=== PATIENT | female | born 1955 | race Caucasian/White ===

== ENCOUNTER 2018-01-05 15:38 | Inpatient (IN) ==
[2018-01-05] MEDS ORDERED: Acetaminophen 325 MG Tablet PO PRN (23:34)
[2018-01-05] MEDS ORDERED: Bisacodyl 10 MG Supp RECTAL PRN (23:34)
[2018-01-05] MEDS ORDERED: Zolpidem Tartrate 5 MG Tablet PO PRN (23:34)
[2018-01-06] MEDS: Ciprofloxacin 400 MG/200 ML 400 MG/200 ML PIGGYBACK IV.SIG SCH ×2 (01:02→12:19)
[2018-01-06] MEDS: Heparin - SQ 10,000 UNITS/ML Vial SQ SCH ×2 (01:03→08:47)
[2018-01-06 07:37] LABS: Baso % (Auto) 0.3 % (0.0-2.0); Eos # (Auto) 0.1 th/mm3 (0.0-0.4); Eos % (Auto) 0.9 % (0.0-4.0); Hemoglobin 10.8 gm/dL (11.6-15.3); Lymph # (Auto) 0.7 th/mm3 (1.0-4.8); Lymph % (Auto) 6.1 % (9.0-44.0); Mean Corpuscular HGB Conc 34.8 % (32.0-36.0); Mean Corpuscular Hemoglobin 34.8 pg (27.0-34.0); Mean Corpuscular Volume 99.8 fL (80.0-100.0); Mean Platelet Volume 9.5 fL (7.0-11.0); Mono # (Auto) 1.1 th/mm3 (0.0-0.9); Mono % (Auto) 9.6 % (0.0-8.0); Neut # (Auto) 9.5 th/mm3 (1.8-7.7); Neut % (Auto) 83.1 % (16.0-70.0); Platelet Count 137 th/mm3 (150-450); Red Cell Distribution Width 14.4 % (11.6-17.2); White Blood Count 11.4 th/mm3 (4.0-11.0)
[2018-01-06 07:39] LABS: Potassium 3.7 meq/L (3.5-5.1)
[2018-01-06 07:50] LABS: Calcium 7.1 mg/dL (8.5-10.1); Carbon Dioxide 20.3 meq/L (21.0-32.0)
[2018-01-06 08:59] LABS: Calcium-Albumin Corrected 7.8 mg/dL (8.5-10.1); Total Protein 5.7 g/dL (6.4-8.2)
--- NOTE | 2018-01-06 11:17 | P.HP ---
History of Present Illness Primary Care Physician: Gasper Del Cid History of Present Illness: 62-year-old white female being admitted for sepsis Patient was in her usual state of health until about 3 days ago when she began experiencing fevers, chills, fatigue, diaphoresis, dysuria, urinary urgency, and left-sided flank pain. She tried taking Tylenol and Motrin, she had a max fever of up to 103 at home. About 1-2 weeks prior to the onset of the symptoms she had just completed a course of Keflex for a UTI and a URI for which she was diagnosed at the emergency department about 20 days ago. The emergency department she was noted to have a white count around 17,000 with substantial microscopic pyuria noted. Patient had a chest x-ray done which had been reviewed which was negative for any acute infection. Patient was started on vancomycin and Zosyn and admitted. Inpatient Certification: I certify that the inpatient services were ordered in accordance with Medicare regulations governing the order. This includes certification that hospital inpatient services are reasonable and necessary and in the case of services not specified as inpatient-only under 42 CFR 419.22(n), that they are appropriately provided as inpatient services in accordance to with the 2-midnight benchmark under 43 CFR 412.3(e) Estimated Total Length of Stay (Days): 3 Plans for Post Hospital Care: Not yet determined Review of Systems All other systems reviewed negative except as stated in HPI PMFSH - History History Provided By: Patient - Medical History Medical History: Medical History (Last Reviewed 01/06/18 @ 11:14 by Kevin Marrufo MD) Crohn disease - Surgical History Surgical History: Surgical History (Last Reviewed 01/06/18 @ 11:14 by Kevin Marrufo MD) History of History of shoulder surgery Hx of removal of cyst Hx of tonsillectomy - Family History Family History: Family History (Last Updated 01/06/18 @ 11:14 by Kevin Marrufo MD) Other Diverticulitis Stroke - Social History I have reviewed the patient's Social History: Yes - Tobacco History Second Hand Smoke Exposure: Yes Tobacco Use In Past 30 Days: Yes Smoking Status: Smoker, status unknown Tobacco Type: Cigarettes - Alcohol History How Often Do You Have a Drink Containing Alcohol: Never - Substance Use History Substance History: No History of Abuse - Immunization History Tetanus Immunization: <5 Years Tetanus Immunization Year if Known: 2017 Hx Influenza Vaccine This Season: No Medications and Allergies Active Medications: Active Medications Acetaminophen (Tylenol) 650 mg PO Q4H PRN PRN Reason: Temp > 100.4 Bisacodyl (Dulcolax Supp) 10 mg RECTAL DAILY PRN PRN Reason: SEVERE CONSITIPATION Heparin Sodium (Porcine) (Heparin Inj) 5,000 units SQ Q8H [facility] Last Admin: 01/06/18 08:47 Dose: Not Given Lactated Ringer's (Lr 1000 Ml Inj) 1,000 mls @ 125 mls/hr IV.CONT .Q8H [facility] Last Admin: 01/06/18 08:48 Dose: 125 mls/hr Ciprofloxacin/Dextrose (Cipro 400 Mg/200 Ml Inj) 400 mg in 200 mls @ 200 mls/ hr IV.SIG Q12H [facility] Last Infusion: 01/06/18 02:25 Dose: Infused Prochlorperazine Edisylate (Compazine Inj) 5 mg IV.PUSH Q4H PRN PRN Reason: NAUSEA OR VOMITING Sennosides (Senokot) 17.2 mg PO Q12H PRN PRN Reason: Moderate Constipation Zolpidem Tartrate (Ambien) 5 mg PO HS PRN PRN Reason: INSOMNIA Allergies Allergy/AdvReac Type Severity Reaction Status Date / Time latex Allergy Mild Hives Verified 01/05/18 16:08 Home Medications Medication Instructions Recorded Confirmed Type folic acid 1 mg PO DAILY 01/05/18 01/05/18 History sulfasalazine 0.5 g PO BID 01/05/18 01/05/18 History Exam Vital signs: Vital Signs 01/05/18 23:00 01/06/18 04:00 01/06/18 08:00 Temperature 99.5 F 98.4 F 99.4 F Pulse Rate 67 67 76 Respiratory Rate 16 16 18 Blood Pressure 112/58 L 115/72 117/57 L Pulse Oximetry 97 97 95 Intake & Output 01/05/18 01/06/18 01/06/18 18:59 06:59 18:59 Intake Total 200 / 200 1000 / 1000 Balance 200 / 200 1000 / 1000 Weight 50.8 kg Intake: IV 200 / 200 1000 / 1000 LR 1000 mL Inj 1,000 ML @ 125 1000 / 1000 mls/hr IV.CONT .Q8H [facility] Rx#: [id number] Cipro 400 MG/200 ML Inj 400 mg 200 / 200 In 200 ml @ 200 mls/hr IV.SIG Q12H [facility] Rx#:[id number] Other: Date of Last Bowel Movement 01/05/18 01/05/18 Weight On Admission 76.4 kg Narrative: VS: afebrile GENERAL: Well-nourished middle-aged female, reclining in bed SKIN: Warm and dry. EYES: No scleral icterus. No injection or drainage. ENT: No nasal bleeding or discharge. Mucous membranes pink and moist. CARDIOVASCULAR: Regular rate and rhythm. no murmurs RESPIRATORY: No accessory muscle use. Clear to auscultation. Breath sounds equal bilaterally. GASTROINTESTINAL: Abdomen soft, nondistended, vague diffuse abdominal tenderness to palpation : No suprapubic tenderness, no right-sided CVA tenderness to percussion, + left-sided CVA tenderness to percussion Extremities: No clubbing, cyanosis, or edema. No obvious deformities. MUSCULOSKELETAL: adequate muscle bulk and tone for age and habitus NEUROLOGICAL: Awake and alert. No obvious cranial nerve deficits. No facial droop nor slurred speech noted. PSYCHIATRIC: Appropriate mood and affect; insight and judgment normal. Results - Labs CBC & Chem 7: 01/06/18 06:15 01/06/18 06:15 Labs: Laboratory Results - last 24 hr 01/06/18 01/06/18 06:15 06:15 CBC w Diff Auto diff final WBC 11.4 H RBC 3.10 L Hgb 10.8 L D Hct 31.0 L MCV 99.8 MCH 34.8 H MCHC 34.8 RDW 14.4 Plt Count 137 L D MPV 9.5 Neut % (Auto) 83.1 H Lymph % (Auto) 6.1 L [place] % (Auto) 9.6 H Eos % (Auto) 0.9 Baso % (Auto) 0.3 Neut # (Auto) 9.5 H Lymph # (Auto) 0.7 L [place] # (Auto) 1.1 H Eos # (Auto) 0.1 Baso # (Auto) 0.0 WBC Differential . Differential Comment . Sodium 143 Potassium 3.7 D Chloride 115 H Carbon Dioxide 20.3 L Anion Gap 8 BUN 16 Creatinine 1.10 H Estimated GFR 50 L Random Glucose 93 Calcium 7.1 L* D Prot Corrected Calcium 7.8 L Total Protein 5.7 L D Caprini VTE Risk Assessment Caprini VTE Risk Assessment: Moderate/High Risk (score >= 2) Caprini Risk Assessment Model: Point Value = 1 Point Value = 2 Point Value = 3 Point Value = 5 Age 41-60 Minor surgery BMI > 25 kg/m2 Swollen legs Varicose veins or History of unexplained or recurrent spontaneous Oral contraceptives or hormone replacement Sepsis (< 1 month) Serious lung disease, including pneumonia (< 1 month) Abnormal pulmonary function Acute myocardial infarction Congestive heart failure (< 1 month) History of inflammatory bowel disease Medical patient at bed rest Age 61-74 Arthroscopic surgery Major open surgery (> 45 min) Laparoscopic surgery (> 45 min) Malignancy Confined to bed (> 72 hours) Immobilizing plaster cast Central venous access Age >= 75 History of VTE Family history of VTE Factor V Leiden Prothrombin 48500A Lupus anticoagulant Anticardiolipin antibodies Elevated serum homocysteine Heparin-induced thrombocytopenia Other congenital or acquired thrombophilia Stroke (< 1 month) Elective arthroplasty Hip, pelvis, or leg fracture Acute spinal cord injury (< 1 month) Prophylaxis Regimen: Total Risk Factor Score Risk Level Prophylaxis Regimen 0-1 Low Early ambulation 2 Moderate Order ONE of the following: *Sequential Compression Device (SCD) *Heparin 5000 units SQ BID 3-4 Higher Order ONE of the following medications: *Heparin 5000 units SQ TID *Enoxaparin/Lovenox 40 mg SQ daily (WT < 150 kg, CrCl > 30 mL/min) *Enoxaparin/Lovenox 30 mg SQ daily (WT < 150 kg, CrCl > 10-29 mL/min) *Enoxaparin/Lovenox 30 mg SQ BID (WT < 150 kg, CrCl > 30 mL/min) AND/OR *Sequential Compression Device (SCD) 5 or more Highest Order ONE of the following medications: *Heparin 5000 units SQ TID (Preferred with Epidurals) *Enoxaparin/Lovenox 40 mg SQ daily (WT < 150 kg, CrCl > 30 mL/min) *Enoxaparin/Lovenox 30 mg SQ daily (WT < 150 kg, CrCl > 10-29 mL/min) *Enoxaparin/Lovenox 30 mg SQ BID (WT < 150 kg, CrCl > 30 mL/min) AND *Sequential Compression Device (SCD) Assessment and Plan - Plan 62-year-old white female being admitted for sepsis secondary to possible pyelonephritis Sepsis Blood cultures pending, urine cultures pending Continue IV fluids and antibiotics as below Possible pyelonephritis We will obtain CT abdomen to rule out pyelonephritic abscess Continue zosyn and vancomycin Mild MARTÍNEZ 2/2 dehydration - IVFs, bmp in am Crohn's disease Stable, continue folic acid, hold sulfasalazine until infx stabilized Lovenox Addendum: CT findings indicative of obstructing 10 mm stone at left UPJ with severe hydronephrosis as well as pyelonephritis. D/w urology, transferring pt to [facility] with anticipated procedure in the next 24 hours. Making patient n.p.o. Pt updated on findings and plan of care.
[2018-01-06] MEDS: Enoxaparin Inj 40 MG/0.4 ML Syringe SQ SCH (12:20)
--- NOTE | 2018-01-06 13:50 | CT ---
EXAM DATE: 01/06/2018 1:43 PM EST AGE/SEX: 62 years / Female INDICATIONS: Left flank pain, with fever, chills and fatigue; Urinary tract infection 20 ago with an tibiotics, possible pyelonephritic abscess CLINICAL DATA: This is the patient's subsequent encounter. Patient reports that signs and symptoms h ave been present for 1 month and indicates a pain score of 6/10. MEDICAL/SURGICAL HISTORY: Crohn's disease. Tonsillectomy. section. Shoulder surgery ORAL CONTRAST: No oral contrast ingested. RADIATION DOSE: 15.10 CTDI (mGy) COMPARISON: No prior exams available for comparison. TECHNIQUE: Multiple contiguous axial images were obtained through the abdomen and pelvis following b olus infusion of 90 ml Omnipaque 350 (iohexol) nonionic water-soluble contrast as a single exam dos e. No oral contrast ingested. Using automated exposure control and adjustment of the mA and/or kV ac cording to patient size, radiation dose was kept as low as reasonably achievable to obtain optimal di agnostic quality images. DICOM format image data is available electronically for review and comparis on. FINDINGS: LOWER LUNGS: Trace bilateral pleural effusions with minimal airspace consolidation at the lung bases . LIVER: Liver demonstrates homogeneous density with slight ill-defined hypodensity near the falciform ligament consistent with focal fat. Gallbladder is unremarkable by CT. SPLEEN: Homogeneous density without enlargement. PANCREAS: Unremarkable without mass or calcification. KIDNEYS: 10 mm calcified calculus at the left UPJ with severe left-sided hydronephrosis. Striated ne phrogram with perinephric stranding on the left. 1 cm cystic lesion in the mid left kidney which is t oo small to fully characterize. No additional radiopaque renal calculi. ADRENAL GLANDS: Unremarkable. AORTA: Georgina-aneurysmal. BOWEL/MESENTERY: The bowel loops are grossly unremarkable. The cecum and sigmoid colon have a ann l configuration. No free fluid or drainable fluid collections. No free air or pneumatosis. ABDOMINAL WALL: Intact. RETROPERITONEUM: Multiple slightly prominent retroperitoneal nodes most notably near the hiatus juan uring up to 1.3 cm. BLADDER: Contours are smooth. REPRODUCTIVE: No abnormal masses or calcifications seen. BONY STRUCTURES: No focal lytic or blastic bony lesions. CONCLUSION: 1. Obstructing 10 mm calcified calculus in the left UPJ with severe left-sided hydronephrosis and im aging findings concerning for superimposed pyelonephritis. 2. 1 cm cystic lesion in the mid left kidney is too small to fully characterize. Statistically this reflects a complex cyst although unlikely a developing renal abscess cannot be entirely excluded. 3. Mild retroperitoneal adenopathy, likely inflammatory/infectious. Electronically signed by: Quintin Christianson MD 01/06/2018 1:49 PM EST
[2018-01-06] MEDS: Piperacil/Tazo 3.375 GM Premix 50 ML IV.SIG SCH ×2 (14:06→19:57)
[2018-01-06] MEDS ORDERED: Vancomycin Consult Pharmacy OTHER PRN (14:19)
[2018-01-06] MEDS ORDERED: Vancomycin Inj 800 MG in Sodium Chlor 0.9% Inj 250 ML IV.SIG SCH (15:00)
[2018-01-06] MEDS ORDERED: Vancomycin Inj 1,000 MG in Sodium Chlor 0.9% Inj 250 ML IV.SIG ONE (16:00)
[2018-01-06] MEDS ORDERED: sulfaSALAzine 500 MG Tablet PO SCH (21:00)
[2018-01-07] MEDS: Piperacil/Tazo 3.375 GM Premix 50 ML IV.SIG SCH ×5 (00:52→18:22)
[2018-01-07 07:10] LABS: Baso % (Auto) 0.4 % (0.0-2.0); Eos # (Auto) 0.2 th/mm3 (0.0-0.4); Eos % (Auto) 2.1 % (0.0-4.0); Hemoglobin 10.2 gm/dL (11.6-15.3); Lymph % (Auto) 12.9 % (9.0-44.0); Mean Corpuscular HGB Conc 35.3 % (32.0-36.0); Mean Corpuscular Hemoglobin 35.2 pg (27.0-34.0); Mean Corpuscular Volume 99.7 fL (80.0-100.0); Mean Platelet Volume 9.4 fL (7.0-11.0); Mono # (Auto) 1.2 th/mm3 (0.0-0.9); Mono % (Auto) 15.1 % (0.0-8.0); Neut # (Auto) 5.4 th/mm3 (1.8-7.7); Neut % (Auto) 69.5 % (16.0-70.0); Platelet Count 116 th/mm3 (150-450); Red Blood Count 2.91 mil/mm3 (4.00-5.30); Red Cell Distribution Width 14.2 % (11.6-17.2); White Blood Count 7.8 th/mm3 (4.0-11.0)
[2018-01-07] MEDS ORDERED: Metoprolol Tartrate 25 MG Tablet PO SCH (08:25)
[2018-01-07] MEDS ORDERED: Chlorhexidine Gluconate 2% 1 Pack (2 Cloths) TOPICAL SCH (08:25)
[2018-01-07] MEDS ORDERED: ceFAZolin 1 GM Premix Inj 1 GM/50 ML FROZ.PIGGY IV.SIG ONE (08:47)
[2018-01-07] MEDS ORDERED: Sodium Chlor 0.9% Inj 500 ML IV.SIG SCH (09:00)
--- NOTE | 2018-01-07 09:36 | P.OP ---
- Preoperative Diagnosis (1) Pyelonephritis, acute (2) Obstruction of left ureteropelvic junction (UPJ) due to stone (3) Hydronephrosis - Postoperative Diagnosis (1) Hydronephrosis (2) Obstruction of left ureteropelvic junction (UPJ) due to stone (3) Pyelonephritis, acute Date of procedure: 01/07/18 Procedure: Cystoscopy with left retrograde pyelogram and left double-J stent insertion Anesthesia: other (General LMA) Surgeon: Kenny Hein DO Estimated blood loss (mL): 0 Operation and Findings: 59-year-old female admitted with a 10 mm obstructing left UPJ stone with pyelonephritis and hydronephrosis elected undergo cystoscopy left double-J stent insertion. Risk and benefits were discussed preoperatively and she is willing to proceed. The patient was brought the operating room and identified by myself as Maine Emery. She was placed in dorsolithotomy position, prepped and draped in usual fashion, received preprocedure antibiotics and general LMA anesthesia was administered. A 22 Malagasy cystoscope was inserted in the bladder [place] cystoscopy did not reveal any abnormalities. A 5 Malagasy open-ended catheter was then inserted into the left ureteral orifice and retrograde pyelogram was performed demonstrating filling defect at the left UPJ region with hydronephrosis. A 0.35 sensor wire was then passed through the open-ended catheter with a good curl in the kidney. The open-ended catheter was then removed. Then a 6 Malagasy 22 cm left double-J stent was placed with good curl in the kidney and the bladder. Purulent drainage was noted coming from the left side. Reynoso catheter was placed at the completion of the procedure. She was awoken and extubated transferred recovery in stable condition. She tolerated the procedure well will need left extracorporeal shockwave lithotripsy as an outpatient in the future.
[2018-01-07] MEDS ORDERED: fentaNYL Citrate Inj 100 MCG/2 ML Ampul ONE (09:42)
[2018-01-07] MEDS: Folic Acid 1 MG Tablet PO SCH (10:58)
[2018-01-07] MEDS: Enoxaparin Inj 40 MG/0.4 ML Syringe SQ SCH (11:03)
--- NOTE | 2018-01-07 12:41 | MB ---
cc: Kenny Hein DO DATE: 01/07/2018 HISTORY OF PRESENT ILLNESS: Ms. Emery is a pleasant 62-year-old female who presented with 3 days of flank pain with fever and chills. She was admitted to the [place] emergency room and then transferred to [place]. CT scan at that time revealed a 9 mm stone at the left UPJ region with severe hydronephrosis and perinephric stranding. She denies any prior history of stones or recent urinary tract infections. PAST MEDICAL HISTORY: Noted for Crohn's disease. PAST SURGICAL HISTORY: , shoulder surgery, tonsillectomy. FAMILY HISTORY: Noted for diverticulitis and a stroke. SOCIAL HISTORY: She is a known smoker. Denies drinking alcohol and no substance abuse. MEDICATIONS: Refer to the chart. ALLERGIES: LATEX. REVIEW OF SYSTEMS: Left-sided flank pain, nausea, vomiting, fever. Denies chest pain, shortness of breath, diarrhea, constipation, new gait disturbances, bleeding disorder, or skin lesions. Remaining review of systems reviewed were negative. PHYSICAL EXAMINATION: VITAL SIGNS: Temperature this morning was 98.4, heart rate 62, respiratory rate 18, blood pressure 129/61, pulse oximetry 95% on room air. GENERAL: Reveals a well-developed, well-nourished, 62-year-old female in no acute distress. HEENT: Normocephalic, atraumatic. Pupils equal, round, regular and reactive to light. Extraocular movements intact. NECK: Supple. HEART: Regular rate and rhythm. LUNGS: Clear. ABDOMEN: Soft, nontender, nondistended. Left CVA tenderness is noted. GENITOURINARY: Normal female external genitalia. EXTREMITIES: No clubbing, cyanosis edema. NEUROLOGIC: Cranial nerves 2-12 are intact. LABORATORY DATA: White count 7.8, hemoglobin 10.2, hematocrit 29.0, platelet count of 116. Sodium 143, potassium 3.7, chloride 115, CO2 20.3, BUN 16, creatinine 1.10, glucose of 93. Again, CT scan demonstrates a 10 mm left UPJ stone with severe left-sided hydronephrosis. ASSESSMENT: A 62-year-old female with left-sided pyelonephritis and obstructing 10 mm stone. Recommend cystoscopy with left double-J stent insertion. Risks and benefits were discussed with the patient. She is willing to proceed. DO Brook Yoder , 09:32 AM , 09:38 AM
[2018-01-07] MEDS ORDERED: Vancomycin Inj 800 MG in Sodium Chlor 0.9% Inj 250 ML IV.SIG SCH (15:00)
--- NOTE | 2018-01-07 17:35 | P.PNIM ---
Subjective Interval history: 62yo f admitted high grade fever and sepsis due to uti found to have 10mm obstructing stone in L UPJ with severe hydronephrosis and perinephric stranding. She underwent Cystoscopy with left retrograde pyelogram and left double-J stent insertion 01/07/18 pt seen and examined doing better, fever improving and no pain or nv, she denies sob, Physical Exam Vital signs: Last Vital Signs Temp 97.8 F 01/07/18 12:00 Pulse 63 01/07/18 12:00 Resp 17 01/07/18 12:00 BP 107/69 01/07/18 12:00 Pulse Ox 96 01/07/18 12:00 Intake & Output 01/05/18 01/06/18 01/07/18 01/08/18 06:59 06:59 06:59 06:59 Intake Total 200 / 200 3600 / 3600 1350 / 1350 Output Total 0 / 0 Balance 200 / 200 3600 / 3600 1350 / 1350 Weight 50.8 kg 78.1 kg pleasant wdwn 62yo w f aaox3 nad heart s1s2 reg 1/6 sm lungs clear no wrr abd soft nondt pos bs ext no edema no calf tenderness Urinary Catheter Management Indwelling Urethral Catheter: Cath placed during this visit: no Results Labs CBC & Chem 7: 01/07/18 06:37 01/06/18 06:15 Assessment and Plan Plan SEPSIS due to PYELONEPHRITIS/UTI w L sided HYDRONEPHROSIS/ obstructive uropathy - fever improving cont iv zosyn/vanco monitor renal function, fu cultures ACUTE PYELONEPHRITIS/UTI complicated due to obstruction of L ureter at UPJ 9mm stone s/p cysto and double j stent placement MARTÍNEZ due to above, creat 1.3 ->1.1, better THROMBOCYTOPENIA - acute, prob due to infection will follow on lovenox prophylaxis CROHNS dz hx home sulfasalazine CHRONIC TOBACCO ABUSE / nicotine addiction - nicoderm topical and counseling to dc HYPERCHLOREMIC METABOLIC ACIDOSIS cont lr ivf for now. NC ANEMIA - dilutional fu hh, no active bleeding. Progress Note: Quality VTE Deep Vein Thrombosis/Pulmonary Embolism Present on Admission: No
[2018-01-07 19:05] LABS: Baso % (Auto) 0.3 % (0.0-2.0); Hemoglobin 11.3 gm/dL (11.6-15.3); Lymph # (Auto) 0.6 th/mm3 (1.0-4.8); Lymph % (Auto) 11.2 % (9.0-44.0); Mean Corpuscular HGB Conc 34.1 % (32.0-36.0); Mean Corpuscular Hemoglobin 34.2 pg (27.0-34.0); Mean Corpuscular Volume 100.1 fL (80.0-100.0); Mean Platelet Volume 9.4 fL (7.0-11.0); Mono # (Auto) 0.5 th/mm3 (0.0-0.9); Neut # (Auto) 3.9 th/mm3 (1.8-7.7); Neut % (Auto) 78.5 % (16.0-70.0); Platelet Count 125 th/mm3 (150-450); Red Blood Count 3.29 mil/mm3 (4.00-5.30); Red Cell Distribution Width 14.1 % (11.6-17.2)
--- NOTE | 2018-01-07 21:08 | P.PN ---
Subjective Interval history: NOT seen Physical Exam Vital signs: Vital Signs 01/07/18 00:00 01/07/18 04:00 01/07/18 08:00 Temperature 98.2 F 99.7 F H 98.4 F Pulse Rate 56 L 61 62 Respiratory Rate 18 18 18 Blood Pressure 117/64 112/57 L 129/61 Pulse Oximetry 95 94 L 95 01/07/18 09:35 01/07/18 09:45 01/07/18 10:00 Temperature 98.4 F 97.4 F L Pulse Rate 70 60 58 L Respiratory Rate 23 13 13 Blood Pressure 99/56 L 103/58 L 111/65 Pulse Oximetry 96 96 96 01/07/18 12:00 01/07/18 16:00 Temperature 97.8 F 97.6 F Pulse Rate 63 59 L Respiratory Rate 17 18 Blood Pressure 107/69 125/61 Pulse Oximetry 96 96 Intake & Output 01/07/18 01/07/18 01/08/18 06:59 18:59 06:59 Intake Total 1100 / 1100 2641 / 2641 50 / 50 Output Total 0 / 0 Balance 1100 / 1100 2641 / 2641 50 / 50 Weight 78.1 kg Intake: IV 1100 / 1100 1366 / 1366 50 / 50 LR 1000 mL Inj 1,000 ML @ 100 1000 / 1000 1000 / 1000 mls/hr IV.CONT .Q10H [facility] Rx#: [id number] Zosyn 3.375 GM Premix 50 ML @ 100 / 100 100 / 100 50 / 50 100 mls/hr IV.SIG Q6H [facility] Rx#: [id number] Vancomycin Inj 800 MG In NS Inj 266 / 266 250 ML @ 266 mls/hr IV.SIG Q24H [facility] Rx#:[id number] Oral 975 / 975 Anesthesia Amount 300 / 300 Output: Estimated Blood Loss 0 / 0 Urine Amount (Catheter) 0 / 0 Indwelling Urethral Catheter 0 / 0 Other: # Voids 900 # Bowel Movements 1 Narrative: pleasant wdwn 62yo w f aaox3 nad heart s1s2 reg 1/6 sm lungs clear no wrr abd soft nondt pos bs ext no edema no calf tenderness - Urinary Catheter Management Indwelling Urethral Catheter Cath placed during this visit: no Reason for continuing: Other continuation reason Results - Labs CBC & Chem 7: 01/07/18 18:19 01/06/18 06:15 Laboratory Results - last 24 hr 01/07/18 01/07/18 06:37 18:19 WBC 7.8 5.0 RBC 2.91 L 3.29 L Hgb 10.2 L 11.3 L Hct 29.0 L 33.0 L MCV 99.7 100.1 H MCH 35.2 H 34.2 H MCHC 35.3 34.1 RDW 14.2 14.1 Plt Count 116 L 125 L MPV 9.4 9.4 Neut % (Auto) 69.5 78.5 H Lymph % (Auto) 12.9 11.2 [place] % (Auto) 15.1 H 10.0 H Eos % (Auto) 2.1 0.0 Baso % (Auto) 0.4 0.3 Neut # (Auto) 5.4 3.9 Lymph # (Auto) 1.0 0.6 L [place] # (Auto) 1.2 H 0.5 Eos # (Auto) 0.2 0.0 Baso # (Auto) 0.0 0.0 WBC Differential . . Differential Comment Auto diff final Auto diff final - Imaging ITS Impressions Abdomen/Pelvis CT 01/06/18 00:00 CONCLUSION: 1. Obstructing 10 mm calcified calculus in the left UPJ with severe left-sided hydronephrosis and imaging findings concerning for superimposed pyelonephritis. 2. 1 cm cystic lesion in the mid left kidney is too small to fully characterize. Statistically this reflects a complex cyst although unlikely a developing renal abscess cannot be entirely excluded. 3. Mild retroperitoneal adenopathy, likely inflammatory/infectious. - Procedures Cystoscopy with left retrograde pyelogram and left double-J stent insertion Assessment and Plan - Plan SEPSIS due to PYELONEPHRITIS/UTI w L sided HYDRONEPHROSIS/ obstructive uropathy - fever improving cont iv zosyn/vanco monitor renal function, fu cultures ACUTE PYELONEPHRITIS/UTI complicated due to obstruction of L ureter at UPJ 9mm stone s/p cysto and double j stent placement MARTÍNEZ due to above, creat 1.3 ->1.1, better THROMBOCYTOPENIA - acute, prob due to infection will follow on lovenox prophylaxis CROHNS dz hx home sulfasalazine CHRONIC TOBACCO ABUSE / nicotine addiction - nicoderm topical and counseling to dc HYPERCHLOREMIC METABOLIC ACIDOSIS cont lr ivf for now. NC ANEMIA - dilutional fu hh, no active bleeding. DVT proph with Lovenox
[2018-01-08] MEDS: Piperacil/Tazo 3.375 GM Premix 50 ML IV.SIG SCH ×3 (00:39→06:35)
[2018-01-08 07:49] LABS: Baso # (Auto) 0.1 th/mm3 (0.0-0.2); Baso % (Auto) 0.5 % (0.0-2.0); Eos # (Auto) 0.1 th/mm3 (0.0-0.4); Eos % (Auto) 0.9 % (0.0-4.0); Hematocrit 33.5 % (35.0-46.0); Hemoglobin 11.6 gm/dL (11.6-15.3); Lymph # (Auto) 1.7 th/mm3 (1.0-4.8); Lymph % (Auto) 16.5 % (9.0-44.0); Mean Corpuscular HGB Conc 34.5 % (32.0-36.0); Mean Corpuscular Hemoglobin 35.1 pg (27.0-34.0); Mean Corpuscular Volume 101.7 fL (80.0-100.0); Mean Platelet Volume 9.5 fL (7.0-11.0); Mono # (Auto) 0.9 th/mm3 (0.0-0.9); Mono % (Auto) 8.8 % (0.0-8.0); Neut # (Auto) 7.5 th/mm3 (1.8-7.7); Neut % (Auto) 73.3 % (16.0-70.0); Platelet Count 130 th/mm3 (150-450); Red Blood Count 3.29 mil/mm3 (4.00-5.30); Red Cell Distribution Width 14.3 % (11.6-17.2); White Blood Count 10.2 th/mm3 (4.0-11.0)
[2018-01-08 08:14] LABS: Albumin 2.1 g/dL (3.4-5.0); Calcium 8.5 mg/dL (8.5-10.1); Carbon Dioxide 22.6 meq/L (21.0-32.0); Phosphorus 2.7 mg/dL (2.5-4.9); Potassium 3.8 meq/L (3.5-5.1)
--- NOTE | 2018-01-08 08:40 | P.PNURO ---
Subjective Patient symptoms today: Pt seen and examined. Pt feeling better. [place] out and voiding. Objective Vital Signs: Vital Signs 01/07/18 09:35 01/07/18 09:45 01/07/18 10:00 Temperature 98.4 F 97.4 F L Pulse Rate 70 60 58 L Respiratory Rate 23 13 13 Blood Pressure 99/56 L 103/58 L 111/65 Pulse Oximetry 96 96 96 01/07/18 12:00 01/07/18 16:00 01/07/18 20:00 Temperature 97.8 F 97.6 F 97.7 F Pulse Rate 63 59 L 57 L Respiratory Rate 17 18 18 Blood Pressure 107/69 125/61 133/87 Pulse Oximetry 96 96 96 01/08/18 00:00 01/08/18 04:00 Temperature 97.2 F L 97.5 F L Pulse Rate 49 L 54 L Respiratory Rate 18 18 Blood Pressure 120/50 L 110/63 Pulse Oximetry 99 95 Intake & Output 01/07/18 01/08/18 01/08/18 18:59 06:59 18:59 Intake Total 2691 / 2691 270 / 270 Output Total 0 / 0 400 / 400 Balance 2691 / 2691 -130 / -130 Weight 81.3 kg Intake: IV 1416 / 1416 150 / 150 LR 1000 mL Inj 1,000 ML @ 100 1000 / 1000 mls/hr IV.CONT .Q10H [facility] Rx#: [id number] Zosyn 3.375 GM Premix 50 ML @ 100 / 100 150 / 150 100 mls/hr IV.SIG Q6H [facility] Rx#: [id number] Vancomycin Inj 800 MG In NS Inj 266 / 266 250 ML @ 266 mls/hr IV.SIG Q24H [facility] Rx#:[id number] Oral 975 / 975 120 / 120 Anesthesia Amount 300 / 300 Output: Estimated Blood Loss 0 / 0 Urine Amount (Catheter) 0 / 0 400 / 400 Indwelling Urethral Catheter 0 / 0 400 / 400 Other: # Voids 900 1 # Bowel Movements 1 Result Diagrams: 01/08/18 06:48 01/08/18 06:48 Medications and IVs: Active Medications Generic Name Dose Route Start Last Admin Trade Name Freq PRN Reason Stop Dose Admin Acetaminophen 650 mg 01/05/18 23:34 01/06/18 17:53 Tylenol PO 650 mg Q4H PRN Administration Temp > 100.4 Bisacodyl 10 mg 01/05/18 23:34 Dulcolax Supp RECTAL DAILY PRN SEVERE CONSITIPATION Enoxaparin Sodium 40 mg 01/06/18 11:30 01/07/18 11:03 Lovenox Inj SQ Not Given DAILY [facility] Folic Acid 1 mg 01/07/18 09:00 01/07/18 10:58 Folic Acid PO 1 mg DAILY [facility]AS Administration Lactated Ringer's 1,000 mls @ 80 mls/hr 01/05/18 23:45 01/08/18 05:47 Lr 1000 Ml Inj IV.CONT Not Given .[id number] [facility] Piperacillin/Tazobactam/Dextrose 50 mls @ 100 mls/hr 01/06/18 13:00 01/08/18 06:35 Zosyn 3.375 Gm Premix IV.SIG Infused Q6H [facility] Infusion Vancomycin HCl 800 mg/ Sodium 266 mls @ 266 mls/hr 01/07/18 15:00 01/07/18 16 :18 Chloride IV.SIG Infused Q24H [facility] Infusion Miscellaneous Information 0 each 01/09/18 15:45 [facility] [place] Lab Info OTHER 01/09/18 15:46 ONCE ONE Miscellaneous Information 1 each 01/07/18 09:35 [facility] [place] OTHER 01/08/18 09:34 UNSCH PRN SEE LABEL COMMENTS Nicotine 1 patch 01/07/18 17:45 01/07/18 18:23 Habitrol 14 Mg Patch.24 Hr T-DERMAL Not Given DAILY [facility] Pharmacy Profile Note 1 each 01/06/18 14:19 Vancomycin Consult Pharmacy OTHER UNSCH PRN Pharmacy to dose Prochlorperazine Edisylate 5 mg 01/05/18 23:40 Compazine Inj IV.PUSH Q4H PRN NAUSEA OR VOMITING Sennosides 17.2 mg 01/05/18 23:34 Senokot PO Q12H PRN Moderate Constipation Objective Remarks: Abd: soft,nt,nd Voiding well. Assessment and Plan - Plan Stable s/p cysto with left JJ stent insertion Stable for discharge F/u for left ESWL in a few weeks as outpt.
[2018-01-08 09:30] VITALS: BP 116/65; PULSE 55; RESP 16; TEMP 97.4; O2SAT 96
[2018-01-08] MEDS: Enoxaparin Inj 40 MG/0.4 ML Syringe SQ SCH (09:49)
[2018-01-08] MEDS: Folic Acid 1 MG Tablet PO SCH (09:49)
--- NOTE | 2018-01-08 09:57 | P.DS ---
Date of admission: 01/05/18 23:00 Primary care physician: Gasper Del Cid Brief History from admission: 62-year-old white female being admitted for sepsis Patient was in her usual state of health until about 3 days ago when she began experiencing fevers, chills, fatigue, diaphoresis, dysuria, urinary urgency, and left-sided flank pain. She tried taking Tylenol and Motrin, she had a max fever of up to 103 at home. About 1-2 weeks prior to the onset of the symptoms she had just completed a course of Keflex for a UTI and a URI for which she was diagnosed at the emergency department about 20 days ago. The emergency department she was noted to have a white count around 17,000 with substantial microscopic pyuria noted. Patient had a chest x-ray done which had been reviewed which was negative for any acute infection. Patient was started on vancomycin and Zosyn and admitted. DS: Medications - Discharge Medications Prescriptions: ciprofloxacin HCl 500 mg PO Q12HR #9 tab DS: Summary Hospital Course: SEPSIS due to PYELONEPHRITIS/UTI w L sided HYDRONEPHROSIS/ obstructive uropathy - Resolved on iv zosyn/vanco switch to po cipro monitor renal function, fu cultures NGTD ACUTE PYELONEPHRITIS/UTI complicated due to obstruction of L ureter at UPJ 9mm stone s/p cysto and double j stent placement. Stable MARTÍNEZ due to above, creat 1.3 ->1.1, better THROMBOCYTOPENIA - acute, prob due to infection will follow on lovenox prophylaxis CROHNS dz hx home sulfasalazine CHRONIC TOBACCO ABUSE / nicotine addiction - nicoderm topical and counseling to dc HYPERCHLOREMIC METABOLIC ACIDOSIS. Improved on LR NC ANEMIA - dilutional fu hh, no active bleeding. Stable Sinus bradycardia noted when patient was sleeping. Completely asymptomatic stable BP. EKG and telemetry reviewed. DVT proph with Lovenox - Time Spent with Patient Total time spent providing and/or coordinating discharge services: Greater than 30 minutes - Quality: VTE Deep Vein Thrombosis/Pulmonary Embolism Present on Admission: No Exam Vital signs: Vital Signs 01/07/18 10:00 01/07/18 12:00 01/07/18 16:00 Temperature 97.4 F L 97.8 F 97.6 F Pulse Rate 58 L 63 59 L Respiratory Rate 13 17 18 Blood Pressure 111/65 107/69 125/61 Pulse Oximetry 96 96 96 01/07/18 20:00 01/08/18 00:00 01/08/18 04:00 Temperature 97.7 F 97.2 F L 97.5 F L Pulse Rate 57 L 49 L 54 L Respiratory Rate 18 18 18 Blood Pressure 133/87 120/50 L 110/63 Pulse Oximetry 96 99 95 01/08/18 08:00 Temperature 97.4 F L Pulse Rate 55 L Respiratory Rate 16 Blood Pressure 116/65 Pulse Oximetry 96 Intake & Output 01/07/18 01/08/18 01/08/18 18:59 06:59 18:59 Intake Total 2691 / 2691 270 / 270 Output Total 0 / 0 400 / 400 Balance 2691 / 2691 -130 / -130 Weight 81.3 kg Intake: IV 1416 / 1416 150 / 150 LR 1000 mL Inj 1,000 ML @ 100 1000 / 1000 mls/hr IV.CONT .Q10H [facility] Rx#: [id number] Zosyn 3.375 GM Premix 50 ML @ 100 / 100 150 / 150 100 mls/hr IV.SIG Q6H [facility] Rx#: [id number] Vancomycin Inj 800 MG In NS Inj 266 / 266 250 ML @ 266 mls/hr IV.SIG Q24H [facility] Rx#:[id number] Oral 975 / 975 120 / 120 Anesthesia Amount 300 / 300 Output: Estimated Blood Loss 0 / 0 Urine Amount (Catheter) 0 / 0 400 / 400 Indwelling Urethral Catheter 0 / 0 400 / 400 Other: # Voids 900 1 # Bowel Movements 1 Narrative: pleasant wdwn 62yo w f aaox3 nad heart s1s2 reg 1/6 sm lungs clear no wrr abd soft nondt pos bs ext no edema no calf tenderness Results Procedures completed during hospitalization: double j stent placement Labs on day of discharge: Labs from last 24 hours 01/08/18 01/08/18 01/07/18 06:48 06:48 18:19 WBC 10.2 D 5.0 RBC 3.29 L 3.29 L Hgb 11.6 11.3 L Hct 33.5 L 33.0 L MCV 101.7 H 100.1 H MCH 35.1 H 34.2 H MCHC 34.5 34.1 RDW 14.3 14.1 Plt Count 130 L 125 L MPV 9.5 9.4 Neut % (Auto) 73.3 H 78.5 H Lymph % (Auto) 16.5 11.2 [place] % (Auto) 8.8 H 10.0 H Eos % (Auto) 0.9 0.0 Baso % (Auto) 0.5 0.3 Neut # (Auto) 7.5 3.9 Lymph # (Auto) 1.7 0.6 L [place] # (Auto) 0.9 0.5 Eos # (Auto) 0.1 0.0 Baso # (Auto) 0.1 0.0 WBC Differential . . Differential Comment Auto diff final Auto diff final Sodium 143 Potassium 3.8 Chloride 113 H Carbon Dioxide 22.6 Anion Gap 7 BUN 11 Creatinine 0.89 Estimated GFR 64 L Random Glucose 108 H Calcium 8.5 Phosphorus 2.7 Albumin 2.1 L - Impressions ITS Impressions Abdomen/Pelvis CT 01/06/18 00:00 CONCLUSION: 1. Obstructing 10 mm calcified calculus in the left UPJ with severe left-sided hydronephrosis and imaging findings concerning for superimposed pyelonephritis. 2. 1 cm cystic lesion in the mid left kidney is too small to fully characterize. Statistically this reflects a complex cyst although unlikely a developing renal abscess cannot be entirely excluded. 3. Mild retroperitoneal adenopathy, likely inflammatory/infectious. Discharge Plan - Discharge Disposition Patient Disposition: 01 Discharge Home - Discharge Condition Condition: Stable - Discharge Order Discharge Orders: Discharge Order (Routine); Ordered 01/08/18 Ordered By: Klever Oshea - Physicians Team Primary Care Provider: Gasper Del Cid Attending Provider: Klever Oshea Other Providers: Kenny Hein DO ; [facility],Insurance - Rxs /Orders / Referrals /Forms Prescriptions: New ciprofloxacin HCl 500 mg Tablet 500 mg PO Q12HR Qty: 9 RF: 0 Continue folic acid 1 mg Tablet 1 mg PO DAILY sulfasalazine 500 mg Tablet 0.5 g PO BID Referrals: Gasper Del Cid MD [Primary Care Provider] - 01/11/18 10:40 am (Appointment scheduled for December at 10:40am in the [place] office. ) Kenny Hein DO [UROLOGY] - See Instructions (1-2 weeks Please call to schedule follow up appointment.) - Discharge Instructions Patient Printed Instructions: Ciprofloxacin (By mouth), Cystoscopy (DC) - Post Discharge Care Plan Care Plan Goals: Your Health Problems: Goals to Promote Your Health: * To prevent worsening of your condition * To maintain your health at the optimal level Directions to Meet Your Goals: * Take your medications as prescribed * Follow your dietary instruction * Follow activity as directed * Keep your appointments as scheduled * Take your immunizations and boosters as scheduled * If your symptoms worsen call your PCP * If no PCP go to Urgent Care or Emergency Room Smoking is dangerous to your health. Avoid second hand smoke. You may reach the 24-hour crisis hotline for domestic abuse at .
[2018-01-08] MEDS ORDERED: Ciprofloxacin 500 MG Tablet PO SCH (10:30)
--- NOTE | 2018-01-09 06:58 | ECG ---
Date Performed: 01/07/2018 Time Performed: 12:24:55 PTAGE: 62 years EKG: Sinus rhythm ST DEVIATION AND MODERATE T-WAVE ABNORMALITY, CONSIDER LATERAL ISCHEMIA ABNORMAL ECG NO PREVIOUS TRACING DOCTOR: Chris Hanna Interpretating Date/Time 01/09/2018 06:53:51
[2018-01-09] MEDS ORDERED: Pharmacy Ordered Lab Info OTHER ONE (15:45)
== END 2018-01-08 11:07 | disposition home or self-care (01) ==
LOC: PHEDDLT 15:38 → PH3 23:00 → N07 01-06 19:28
PROVIDERS: ADMIT Internal Medicine; ATTEND Internal Medicine